=== PATIENT | female | born 1995 | race Caucasian/White ===

== ENCOUNTER 2018-03-17 01:31 | Emergency (ER) | payer OTHER ==
[~2018-03-17] VITALS: Ht 172.7 cm; Wt 65.8 kg
[~2018-03-17 01:31] MED LIST: EXCEDRIN
== END 2018-03-17 05:09 | disposition home or self-care (01) ==
LOC: ER 01:31
DX: R06.09 Other forms of dyspnea (principal); F41.1 Generalized anxiety disorder
CPT/HCPCS: 99282